=== PATIENT | female | born 1950 | race Caucasian/White ===

== ENCOUNTER → 2017-11-04 | Outpatient (CLI) | payer BC ==
--- NOTE | 2017-11-04 15:46 | KCIC ---
MRI Lumbar Spine without contrast History: Lumbar back pain with radiculopathy, pain in the left leg, left lower extremity numbness Technique: Multiplanar, multi sequential noncontrast MR imaging was performed of the lumbar spine. Contrast: None Comparison: None Findings: There is some motion degradation. There is transitional anatomy of the lumbar spine. For the purpose of this report, the most inferior fully formed intervertebral disc space is considered L5-S1 at which there is grade 1 anterior spondylolisthesis, rudimentary incomplete intervertebral disc space at S1-S2. There is very minimal posterior subluxation of L2 relative to L3. There is multilevel fairly advanced degenerative disc disease throughout the lumbar spine. Conus terminates at L2-3. There is mild variable endplate edema throughout the lumbar spine likely reactive/degenerative in etiology. There is mild lumbar levoscoliosis. T12-L1: There is shallow posterior protrusion. Spinal canal is adequate. L1-L2: There is minimal broad posterior disc osteophyte complex and minimal bulge. Spinal canal and neural foramina are adequate. L2-L3: There is broad posterior disc osteophyte complex. There is mild narrowing of the far left lateral recess. There is mild buckling of the ligamentum flavum. There is mild neural foramina compromise bilaterally. L3-L4: There is broad posterior disc osteophyte complex. There is mild facet degenerative change and buckling of the ligamentum flavum. Spinal canal is overall adequate. There is mild narrowing of the right neural foramen, left neural foramen adequate. L4-L5: There is minimal disc osteophyte complex. There is mild facet degenerative change. Spinal canal is adequate. There is mild neural foramina compromise bilaterally, disc osteophyte complex contacting undersurface exiting right L4 nerve root. L5-S1: There is moderate facet degenerative change greater on the left. There is mild buckling of the ligamentum flavum. There is partial uncovering of the posterior aspect of the disc due to spondylolisthesis, minimal superimposed disc osteophyte complex. Spinal canal is overall adequate. There is moderate left and minimal right neural foramina compromise. Impression: 1. There is transitional anatomy of the lumbar spine, grade 1 anterior spondylolisthesis at what is considered L5-S1. There is multilevel advanced degenerative disc disease variably throughout lumbar spine, multilevel spondylosis. There is no significant lumbar spinal stenosis, mild narrowing of the far left lateral recess L2-3. 2. There is moderate narrowing of the left L5-S1 neural foramen, other mild narrowing as stated. Electronically signed by: Keyur Lobo MD (11/04/2017 3:43 PM) [facility] [place]
== END | disposition home or self-care (01) ==
LOC: KCIC MRI 14:39
PROVIDERS: ATTEND Family Medicine
DX: M51.36 Other intervertebral disc degeneration, lumbar region (principal); M43.16 Spondylolisthesis, lumbar region; M48.07 Spinal stenosis, lumbosacral region; M25.78 Osteophyte, vertebrae
CPT/HCPCS: 72148

== ENCOUNTER → 2018-11-16 | Outpatient (CLI) | payer BC, MEDICARE ==
[~2018-11-16] MED LIST: ALPR0.25 PO; CALC500T30 PO; CYCL5TAB PO; HYDR-3164 PO; HYDR200T71 PO; IOHEXOL 180 MG/ML 10 ML VIAL. ONE; LISI1TAB23 PO; MELO15TA23 PO; MULT1TAB52 PO; OMEG-57 PO; PRAM0.255 PO; methylPREDNISolone ACETATE 40 MG/ML VIAL. ONE; methylPREDNISolone ACETATE 80 MG/ML VIAL. ONE
--- NOTE | 2018-11-17 02:36 | PAIN ---
DATE OF SERVICE: 11/16/2018 INITIAL CONSULTATION FOR PAIN CLINIC CHIEF COMPLAINT: Low back and left greater than right lower extremity pain. 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 The patient reports it is worse across the low back radiating to the lower extremities, mostly in the left side in the posterior gluteus, posterior thigh and posterior calf on the left side more than the right, some on the right, but mostly on the left side. The patient reports it is worse with standing, walking, changing positions, awakens her from sleep occasionally, but not every night. The patient reports it does not affect her bowel or bladder control, but does affect her ability to walk. She is not using any assistive devices, however. The patient has tried therapy in the past, also chiropractic treatment and exercise she is currently doing on her own as well as walking, which all helped to some extent. She also tried [place], meloxicam, Tylenol, Flexeril, Mirapex, all of which helped to a moderate extent also. The patient reports her disability rating from 0-10, 10 being the worst, is a 5 with family and home responsibilities and recreation, 6 with occupation, 2 with social activity, 2 with sexual behavior, 1 with self-care and 3 with life support activities. The patient did have an MRI scan of the lumbar spine showing disk osteophyte complexes at L2-L3, L3-L4 and L4-L5 as well as L5-S1 with L4-L5 showing some contact of the undersurface of exiting right L4 nerve root and L5 shows degenerative changes, greater on the left with superimposed disk osteophyte complex, moderate left and minimal right neural foraminal compromise. The patient describes significant fatigability of the left lower extremity when she has been on her feet, usually at work or standing, leaning forward. She can decrease the pain by propping herself up with her arms on the countertop in getting the weight off of her low back, which seems to help but she does this frequently while she is working. PAST MEDICAL HISTORY: Significant for history of hypertension, UTIs, dizziness, loss of balance, arthritis, osteoporosis, osteopenia and skin limited lupus. PREVIOUS SURGERIES: Include right leg surgery, pins and hardware from an injury, hysterectomy and shoulder repair in 2006. CURRENT MEDICATIONS: Include calcium carbonate, fish oil, multivitamins, lisinopril, meloxicam, hydrocodone, Plaquenil, Xanax, Mirapex and cyclobenzaprine. ALLERGIES: The patient has no known drug allergies. FAMILY HISTORY: Significant for heart disease in the patient's father. SOCIAL HISTORY: The patient drinks 1-2 alcoholic drinks 3-4 times a week, does not smoke. Denies any illegal, illicit or recreational drugs. She is , lives with her spouse, lives locally in [place], [place], works as a registered nurse at the [employer]. REVIEW OF SYSTEMS: The patient's review of systems is positive for those items as mentioned in history of present illness. All systems reviewed are otherwise negative. It is complete, full and well documented on the patient's chart. PHYSICAL EXAMINATION: VITAL SIGNS: The patient's blood pressure is 136/85, pulse 90, respirations 18, temperature 98.3 degrees Fahrenheit, height is 4 feet 11 inches, weight is 178 pounds. GENERAL: She is awake, alert, oriented, appropriate, very pleasant demeanor. HEENT: Shows head is normocephalic, atraumatic. Extraocular movements are intact and symmetrical. Oral cavity: Mucous membranes moist and pink. Dentition is intact. NECK: Shows anterior throat supple without palpable lymphadenopathy noted. Swallow reflex symmetrical. CHEST: Shows normal on inspection. Breath sounds are clear bilaterally. HEART: Shows S1, S2 clear. No murmurs auscultated. ABDOMEN: Soft, nontender, nondistended. No palpable organomegaly is noted. No rebound or guarding demonstrated. BACK: Shows spine grossly in the midline. Normal-appearing thoracic kyphosis and minor flattening of lumbar lordotic curvature and normal cervical lordotic curvature. Lumbar paraspinous muscle shows symmetrical on inspection. Palpation shows some moderate tenderness diffusely bilaterally, but only diffusely without significant radiation. The patient has good rotational motion of lumbar spine, both laterally greater than 10 degrees right and left as well as extension greater than 10 degrees, forward flexion 45 degrees without significant increase in pain. EXTREMITIES: The patient's lower extremities show deep tendon reflexes at 2+ in the patellar and 1+ tendo-calcaneus tendons. Motor exam is approximately 4 on a scale of 5 in the left and 5/5 in the right with dorsiflexion, extension, quadriceps and hamstring flexion, but intact. Peripheral pulses are 1+ posterior tibial. No peripheral edema is noted bilaterally. The patient's straight leg raise noted to be positive on the left at about 40 degrees. Right side is negative. Gaenslen's and Can's maneuvers are negative bilaterally. The patient is able to stand, stand on her toes without significant difficulty or loss of balance, not using any assistive devices, has a slight favoring gait, does appear to favor her left lower extremity mildly when ambulating. SKIN: Shows warm and dry, good turgor. No edema. No sores, rashes or bruising. IMPRESSION: This is a 68-year-old female with: 1. Long history of low back and left greater than right lower extremity pain, worse over the past 6 months or so. 2. MRI scan of lumbar spine as noted. 3. Arthritis. 4. Hypertension. PLAN: Options were discussed with the patient including conservative medical management, physical therapy, interventional techniques and she would like to pursue interventional techniques. We discussed the lumbar epidural steroid injections using description as well as anatomical models to describe the procedure. Risks were then discussed including, but not limited to bleeding, infection, possibility of epidural hematoma, subsequent neurological compromise, dural puncture, headaches, spinal cord and/or nerve damage, side effects of steroid medication and poor results regarding pain control. The patient understands and wished to proceed. The patient will return to clinic in approximately 2 weeks for followup. She was counseled on return appointment, activity level and side effects to be aware of. DIAGNOSIS: Lumbar radiculopathy with lumbar degenerative disk disease. PROCEDURE: Lumbar epidural steroid injection, translaminar approach at L5-S1 level using C-arm fluoroscopic guidance under sterile prep and drape using local anesthetic. MEDICATIONS INJECTED: A total of 120 mg Depo-Medrol plus 10 mL of preservative-free normal saline and 2 mL of contrast. CONDITION AT DISCHARGE: Stable. The patient tolerated the procedure well, had no complications. YUSUF LOMBARDO MD DR: KAYLIN/stanislaw JOB#: [id number] / [id number] JAMIL Paz MD
== END ==
LOC: PNCL 09:22
PROVIDERS: ATTEND Anesthesiology
DX: M51.16 Intervertebral disc disorders with radiculopathy, lumbar region (principal); I10 Essential (primary) hypertension; Z87.39 Personal history of other diseases of the musculoskeletal system and connective tissue; Z87.440 Personal history of urinary (tract) infections; Z90.710 Acquired absence of both cervix and uterus; Z98.890 Other specified postprocedural states; Z72.89 Other problems related to lifestyle
CPT/HCPCS: 62323; J1030; J1040; Q9965

== ENCOUNTER → 2018-11-29 | Outpatient (CLI) | payer BC, MEDICARE ==
[~2018-11-29] MED LIST changes: +BUPR150T8 PO; -IOHEXOL 180 MG/ML 10 ML VIAL. ONE; -methylPREDNISolone ACETATE 40 MG/ML VIAL. ONE; -methylPREDNISolone ACETATE 80 MG/ML VIAL. ONE
--- NOTE | 2018-11-30 04:17 | PN ---
DATE: 11/29/2018 PROGRESS NOTE FOR PAIN CLINIC DIAGNOSIS: Lumbar radiculopathy with lumbar degenerative disk disease. HISTORY OF PRESENT ILLNESS: The patient is a 68-year-old female who returns for followup status post lumbar epidural steroid injection x 1. The patient reports she did very well with about 90+ % decrease in pain in her low back and left lower extremity. The patient reports the pain is now in very minimal amount, maybe 4 on a scale of 10 at its absolute worst in the past week, 1-2 on average, 0 at its least, and is 0 today. The patient reports it is aching and dull in the low back, more on the left side only with activity and working. The patient has been increasing her activity doing distance walking activity with work and home activities, getting out of bed much easier. The patient reports she is quite pleased with her progress, reports no new motor or sensory deficits, no new bowel or bladder incontinence. PHYSICAL EXAMINATION: VITAL SIGNS: The patient's blood pressure is 132/84, pulse 77, respirations 16, temperature is 98.1 degrees Fahrenheit. The patient's weight is 174 pounds. GENERAL: The patient is awake, alert, oriented, appropriate, very pleasant demeanor. HEENT: Normocephalic, atraumatic. Extraocular movements are intact and symmetrical. Oral cavity, mucous membranes are moist and pink. Dentition is intact. NECK: Shows anterior throat supple without palpable lymphadenopathy noted. Swallow reflex symmetrical. CHEST: Shows normal on inspection. Breath sounds clear to auscultation bilaterally. HEART: Shows S1, S2 clear. No murmurs auscultated. ABDOMEN: Soft, nontender, nondistended. No palpable organomegaly is noted. No rebound or guarding demonstrated. BACK: Shows spine grossly in the midline. Normal appearing thoracic kyphosis and lumbar lordotic curvature. Lumbar paraspinous muscle shows symmetrical on inspection. On palpation shows some moderate tenderness diffusely bilaterally, but only diffusely without radiation. EXTREMITIES: The patient's lower extremities show deep tendon reflexes 2+ in the patellar, 1+ tendo-calcaneus tendons. Motor exam is approximately 4 on a scale of 5 on the left and 5/5 on the right, but intact. Peripheral pulses are 1+ posterior tibia. No peripheral edema is noted. Options were discussed with the patient. The patient's old chart was reviewed. Her current medication regimen updated. Current review of systems updated today as well. We will hold on any further injections at this time as the patient is doing quite a bit better and would like to hold on any further interventions. She will continue to increase in activity as tolerated. Also, continue the stretching and strengthening exercises of low back and will follow up at this time on as needed basis. YUSUF LOMBARDO MD DR: KAYLIN/stanislaw JOB#: [id number] / [id number]
== END | disposition home or self-care (01) ==
LOC: PNCL 10:08
PROVIDERS: ATTEND Anesthesiology
DX: M51.16 Intervertebral disc disorders with radiculopathy, lumbar region (principal); M40.294 Other kyphosis, thoracic region; M40.46 Postural lordosis, lumbar region
CPT/HCPCS: G0463

== ENCOUNTER → 2018-12-27 | Outpatient (CLI) | payer BC, MEDICARE ==
[~2018-12-27] MED LIST changes: +IOHEXOL 180 MG/ML 10 ML VIAL. ONE; +methylPREDNISolone ACETATE 40 MG/ML VIAL. ONE; +methylPREDNISolone ACETATE 80 MG/ML VIAL. ONE
--- NOTE | 2018-12-27 19:45 | PAIN ---
DATE OF SERVICE: 12/27/2018 PROGRESS NOTE FOR PAIN CLINIC DIAGNOSIS: Lumbar radiculopathy with lumbar degenerative disk disease. HISTORY OF PRESENT ILLNESS: The patient is a 68-year-old female returns for followup status post lumbar epidural steroid injection x 1. The patient reports about 80% improvement for the first few weeks. The pain is returning now but gradually in the low back and left lower extremity, mostly in the posterior gluteus, posterior thigh, some numbness in this area as well, mostly aching and pain. The patient describes it as tight and shooting across the low back and radiating to the left lower extremity, sometimes severe with walking, standing, changing positions. The patient reports she is sleeping very well at night, occasionally has some cramps in her right leg, but only twice recently. The patient reports otherwise sleeps well, usually does not awaken her from sleep. The patient reports no new motor or sensory deficits, no new bowel or bladder incontinence or other complaints. The patient describes the pain as a 7 on a scale of 10 at its worst over the past week, 4 on average, 1 at its least and is a 4 today. PHYSICAL EXAMINATION: VITAL SIGNS: The patient's blood pressure is 131/67, pulse 83, respirations are 18, temperature 98.0 degrees Fahrenheit, height is 4 feet 10 inches, weighs 178 pounds. GENERAL: The patient is awake, alert, oriented, appropriate, very pleasant demeanor. HEENT: Head is normocephalic, atraumatic. Extraocular movements are intact and symmetrical. Oral cavity: Mucous membranes moist and pink. Dentition is intact. NECK: Shows anterior throat supple without palpable lymphadenopathy noted. Swallow reflex symmetrical. CHEST: Shows normal on inspection. Breath sounds clear to auscultation bilaterally. HEART: Shows S1, S2 clear. No murmurs auscultated. ABDOMEN: Soft, nontender, nondistended. BACK: Shows spine grossly in the midline. Lumbar paraspinous muscle shows symmetrical on inspection, with palpation shows some moderate tenderness diffusely bilaterally, but only diffusely without radiation. EXTREMITIES: The patient's lower extremities show deep tendon reflexes 2+ in the patellar, 1+ tendo-calcaneus tendons. Motor exam is 4/5, left and 5/5 on the right with dorsiflexion, extension, quadriceps and hamstring flexion. Peripheral pulses are 1+ posterior tibia. No peripheral edema is noted. Options were discussed with the patient. The patient's old chart was reviewed as her current medication regimen updated. Current review of systems updated as well. We will proceed with a second in a series of lumbar epidural steroid injection today with fluoroscopic guidance. Risks were again discussed including, but not limited to bleeding, infection, possibility of epidural hematoma, subsequent neurologic compromise, dural puncture, headaches, spinal cord and/or nerve damage, side effects of steroid medication and poor results regarding pain control. The patient understands and wished to proceed. The patient will return to clinic in approximately 2 weeks for followup. She was counseled on return appointment, activity level and side effects to be aware of. DIAGNOSES: Lumbar radiculopathy with lumbar degenerative disk disease. PROCEDURE: Lumbar epidural steroid injection, translaminar approach L5-S1 level using C-arm fluoroscopic guidance under sterile prep and drape using local anesthetic. MEDICATION INJECTED: The patient received a total of 120 mg Depo-Medrol plus 10 mL of preservative-free normal saline and 2 mL of contrast. CONDITION AT DISCHARGE: Stable. The patient tolerated the procedure well, had no complications. YUSUF LOMBARDO MD DR: KAYLIN/stanislaw JOB#: [id number] / [id number]
== END ==
LOC: PNCL 14:17
PROVIDERS: ATTEND Anesthesiology
DX: M51.16 Intervertebral disc disorders with radiculopathy, lumbar region (principal)
CPT/HCPCS: 62323; J1030; J1040; Q9965

== ENCOUNTER → 2019-12-12 | Outpatient (CLI) | payer MEDICARE ==
[~2019-12-12] MED LIST changes: +CETI10TA74 PO; +CRAN300T PO; +CYCL10TA2 PO; +FAMO-63 PO; +GABA600T7 PO; +HYDR-2765 PO; -IOHEXOL 180 MG/ML 10 ML VIAL. ONE; +MULT-445 PO; -MULT1TAB52 PO; -methylPREDNISolone ACETATE 40 MG/ML VIAL. ONE; -methylPREDNISolone ACETATE 80 MG/ML VIAL. ONE
[2019-12-12 09:27] LABS: BASO # 0.1 x10^3/uL (0.0-0.2); BASO % 2 % (0-3); EOS # 0.3 x10^3/uL (0.0-0.7); EOS % 6 % (0-3); HEMATOCRIT 43.1 % (36.0-47.0); HEMOGLOBIN 14.8 g/dL (12.0-15.5); LYMPH # 1.6 x10^3/uL (1.0-4.8); LYMPH % 31 % (24-48); MEAN CORPUSCULAR HEMOGLOBIN 32 pg (25-35); MEAN CORPUSCULAR HGB CONC 34 g/dL (31-37); MEAN CORPUSCULAR VOLUME 94 fL (79-100); MONO # 0.5 x10^3/uL (0.0-1.1); MONO % 11 % (0-9); NEUT # 2.6 x10^3/uL (1.8-7.7); NEUT % 50 % (31-73); PLATELET COUNT 269 x10^3/uL (140-400); RED BLOOD COUNT 4.58 x10^6/uL (3.50-5.40); RED CELL DISTRIBUTION WIDTH 14.1 % (11.5-14.5); WHITE BLOOD COUNT 5.1 x10^3/uL (4.0-11.0)
[2019-12-12 09:43] LABS: PROTHROMBIN TIME PATIENT 12.7 SEC (11.7-14.0)
[2019-12-12 09:44] LABS: ALBUMIN 3.6 g/dL (3.4-5.0); C-REACTIVE PROTEIN 2.3 mg/L (0-3.3); CALCIUM 9.8 mg/dL (8.5-10.1); CREATININE 0.9 mg/dL (0.6-1.0); GFR 61.9; POTASSIUM 3.8 mmol/L (3.5-5.1)
--- NOTE | 2019-12-12 13:21 | EKG ---
[facility] [address] [place] [address] Test Date: 2019-12-12 Test Time: 12:47:47 Pat Name: ARACELI BADILLO Department: Room: Gender: F Counter Tacker: MR RODB: 1950 Requested By: CLAIRE MILTON Order Number: [id number] Reading MD: Venkat Aguilera MD Measurements Intervals [place] Rate: 75 P: 35 WI: 236 QRS: -16 QRSD: 94 T: 26 QT: 382 QTc: 429 Interpretive Statements SINUS RHYTHM PROLONGED WI INTERVAL CONSIDER PRIOR INFERIOR INFARCT Electronically Signed On 12-13-2019 8:36:37 CDT by Venkat Aguilera MD
--- NOTE | 2019-12-12 16:00 | RAD ---
EXAM: Chest, 2 views. HISTORY: Preoperative evaluation. COMPARISON: None. FINDINGS: 2 views of the chest are obtained. There is no infiltrate, pleural effusion or pneumothorax. The heart is normal in size. There is internal fixation of a left humeral fracture, partially included on the [id number]. There is a chronic proximal right humeral fracture. There is incidental calcification within the right subacromial space possibly due to calcific tendinitis. IMPRESSION: No acute pulmonary finding. Electronically signed by: Flora Mayes MD (12/12/2019 3:57 PM) [id number]
[2019-12-13 01:08] LABS: HEMOGLOBIN A1C 5.1 % (4.8-5.6)
== END | disposition home or self-care (01) ==
LOC: SURGPAT 12:52
PROVIDERS: ATTEND Orthopaedic Surgery
DX: Z01.812 Encounter for preprocedural laboratory examination (principal); M84.421A Pathological fracture, right humerus, initial encounter for fracture; M65.811 Other synovitis and tenosynovitis, right shoulder; Z96.652 Presence of left artificial knee joint; X58.XXXA Exposure to other specified factors, initial encounter; Y93.89 Activity, other specified; Y92.89 Other specified places as the place of occurrence of the external cause; Y99.8 Other external cause status
CPT/HCPCS: 36415; 71046; 80048; 82040; 82306; 83036; 85025; 85610; 85730; 86140; 87641; 93005

== ENCOUNTER → 2019-12-22 | Outpatient (CLI) | payer MEDICARE | LOC: LAB 14:15 | PROVIDERS: ATTEND Orthopaedic Surgery | DX: Z01.812 Encounter for preprocedural laboratory examination (principal); M19.90 Unspecified osteoarthritis, unspecified site; Z20.828 Contact with and (suspected) exposure to other viral communicable diseases | CPT/HCPCS: U0003-CS ==

== ENCOUNTER → 2020-03-21 | Outpatient (CLI) | payer MEDICARE ==
[2019-12-28 13:19] VITALS: BP 114/57
[~2020-03-21] MED LIST changes: +TRAM50TA PO
[2020-03-21 09:58] LABS: BASO # 0.1 x10^3/uL (0.0-0.2); BASO % 1 % (0-3); EOS # 0.2 x10^3/uL (0.0-0.7); EOS % 5 % (0-3); HEMATOCRIT 41.3 % (36.0-47.0); LYMPH # 1.4 x10^3/uL (1.0-4.8); LYMPH % 26 % (24-48); MEAN CORPUSCULAR HEMOGLOBIN 32 pg (25-35); MEAN CORPUSCULAR HGB CONC 34 g/dL (31-37); MEAN CORPUSCULAR VOLUME 93 fL (79-100); MONO # 0.6 x10^3/uL (0.0-1.1); MONO % 12 % (0-9); NEUT # 2.9 x10^3/uL (1.8-7.7); NEUT % 56 % (31-73); PLATELET COUNT 245 x10^3/uL (140-400); RED BLOOD COUNT 4.42 x10^6/uL (3.50-5.40); RED CELL DISTRIBUTION WIDTH 13.4 % (11.5-14.5); WHITE BLOOD COUNT 5.2 x10^3/uL (4.0-11.0)
[2020-03-21 10:11] LABS: PROTHROMBIN TIME PATIENT 12.8 SEC (11.7-14.0)
[2020-03-21 10:14] LABS: ALBUMIN 3.4 g/dL (3.4-5.0); ANION GAP 10 (6-14); BLOOD UREA NITROGEN 28 mg/dL (7-20); CALCIUM 9.5 mg/dL (8.5-10.1); CARBON DIOXIDE 24 mmol/L (21-32); CHLORIDE 101 mmol/L (98-107); CREATININE 0.8 mg/dL (0.6-1.0); GFR 70.9; GLUCOSE 101 mg/dL (70-99); POTASSIUM 4.3 mmol/L (3.5-5.1); SODIUM 135 mmol/L (136-145)
[2020-03-21 10:15] LABS: C-REACTIVE PROTEIN < 0.5 mg/L (0-3.3)
[2020-03-22 00:08] LABS: HEMOGLOBIN A1C 5.1 % (4.8-5.6)
== END ==
LOC: SURGPAT 09:27
PROVIDERS: ATTEND Orthopaedic Surgery
DX: Z01.812 Encounter for preprocedural laboratory examination (principal); S82.142A Displaced bicondylar fracture of left tibia, initial encounter for closed fracture; Z20.828 Contact with and (suspected) exposure to other viral communicable diseases; X58.XXXA Exposure to other specified factors, initial encounter; Y93.89 Activity, other specified; Y92.89 Other specified places as the place of occurrence of the external cause; Y99.8 Other external cause status
CPT/HCPCS: 80048; 82040; 82306; 83036; 85025; 85610; 85730; 86140; 87641; U0003

== ENCOUNTER 2020-03-27 10:40 | Inpatient (IN) | payer MEDICARE ==
[~2020-03-27] VITALS: Ht 146.1 cm; Wt 76.7 kg
[2020-03-27] VITALS (7 sets, daily range): BP systolic 96–118; BP diastolic 60–75
[~2020-03-27 10:40] MED LIST changes: +ACETAMINOPHEN 500 MG TABLET PO ONE; +DEXAMETHASONE SOD PHOS 4 MG/ML VIAL ONE; +GABAPENTIN 300 MG CAPSULE. PO ONE; +IV RINGERS,LACTATED 1000ML 1,000 ML IV SCH; +LIDOCAINE 1% PF 2 ML VIAL. ID PRN; +LIDOCAINE 2% PF 5 ML VIAL. ONE; +MELOXICAM 7.5 MG TABLET PO ONE; +MORPHINE SULFATE 5 MG, KETOROLAC 30MG VIAL 30 MG, ROPIVacaine 0.5% PF 60 ML, EPINEPHrin... INT ART ONE; +ONDANSETRON PF 4 MG/2 ML VIAL. IV PRN; +ONDANSETRON PF 4 MG/2 ML VIAL. ONE; +PROPOFOL 10 MG/ML (20ML) VIAL. IV ONE; +TRANEXAMIC ACID 1,000 MG in IV NORMAL SALINE 50ML 50 ML INJ ONE; +ceFAZolin SODIUM IV Push 1 GM VIAL. IVP PRN; +fentaNYL PF VIAL 100 MCG/2 ML VIAL IV PRN; +fentaNYL PF VIAL 100 MCG/2 ML VIAL ONE
[2020-03-27 11:43] LABS: PROTHROMBIN TIME PATIENT 13.1 SEC (11.7-14.0)
[2020-03-27] MEDS ORDERED: VANCOMYCIN 1 GM VIAL. ONE (14:27)
[2020-03-27] MEDS ORDERED: fentaNYL PF VIAL 100 MCG/2 ML VIAL ONE ×2 (14:38→16:04)
[2020-03-27] MEDS ORDERED: HYDROmorphone 2 MG/ML VIAL ONE ×2 (15:03→16:21)
[2020-03-27] MEDS ORDERED: SEVOFLURANE > 120 MINUTES. IH ONE (15:23)
[2020-03-27] MEDS: fentaNYL PF VIAL 100 MCG/2 ML VIAL IV PRN ×2 (16:12→16:29)
[2020-03-27] MEDS ORDERED: MORPHINE SULFATE 2 MG/ML VIAL. ONE (16:21)
[2020-03-27] MEDS ORDERED: PROCHLORPERAZINE 10 MG/2 ML VIAL. ONE (16:22)
[2020-03-27] MEDS: PROCHLORPERAZINE 10 MG/2 ML VIAL. IV PRN ×2 (16:29→16:47)
[2020-03-27] MEDS: MORPHINE SULFATE 2 MG/ML VIAL. IV PRN ×2 (16:34→16:48)
[2020-03-27] MEDS: HYDROmorphone 2 MG/ML VIAL IV PRN ×3 (16:59→17:22)
[2020-03-27] MEDS ORDERED: HYDROmorphone 2 MG/ML VIAL IVP PRN (17:45)
[2020-03-27] MEDS ORDERED: PROCHLORPERAZINE 5 MG TABLET. PO PRN (17:45)
[2020-03-27] MEDS ORDERED: 0.9 % SODIUM CHLORIDE 10 ML DISP.SYRIN. IV PRN (17:45)
[2020-03-27] MEDS ORDERED: CALCIUM CARBONATE 500 MG TAB.CHEW PO PRN (17:45)
[2020-03-27] MEDS ORDERED: ZOLPIDEM 5 MG TABLET. PO PRN (17:45)
[2020-03-27] MEDS ORDERED: DEXTROSE 50% 25 GM / 50ML DISP.SYRIN. IV PRN (17:45)
[2020-03-27] MEDS ORDERED: diphenhydrAMINE 50 MG/ML VIAL IVP PRN (17:45)
[2020-03-27] MEDS ORDERED: fentaNYL PF VIAL 100 MCG/2 ML VIAL IVP PRN (17:45)
--- NOTE | 2020-03-27 17:55 | RAD ---
EXAMINATION: XR KNEE_LT 1-2 VIEWS CLINICAL HISTORY: Status post arthroplasty TECHNIQUE: XR KNEE_LT 1-2 VIEWS Number of Images/Views: 2 COMPARISON: Left knee radiographs 03/19/2020 FINDINGS: Interval left total knee arthroplasty in satisfactory alignment with no evidence of acute hardware co mplication. Expected postsurgical changes in the sternum and soft tissues including mild soft tissue and intra-articular emphysema. IMPRESSION: Normal postoperative findings status post interval left total knee arthroplasty. Electronically signed by: Morgan Higuera DO (03/27/2020 5:53 PM) [id number]
[2020-03-27] MEDS ORDERED: FLU VACC QS 2020-21(6MOS+)/PF 0.5 ML SYRINGE. VAX IM ONE (18:45)
[2020-03-27] MEDS: ceFAZolin SODIUM IV Push 1 GM VIAL. IVP SCH (19:36)
[2020-03-27] MEDS: IV NORMAL SALINE 1000ML BAG 1,000 ML IV SCH (19:36)
--- NOTE | 2020-03-27 20:01 | PDOC4 ---
Operative Note Operative Note Date of surgery: 03/27/2020 Preoperative diagnosis: Left knee degenerative joint disease and left lateral tibial plateau fracture with left knee valgus instability Postoperative diagnosis: Same with markedly depressed lateral tibial plateau fracture with confirmed instability Operative procedure: Left total knee arthroplasty Surgeon: Yossi Assistants: Mukesh quiles Anesthesia: General Estimated blood loss: 25 cc Complications: None Specimens: Cartilage surfaces to pathology Drains: None Operative indications: Please see my dictated preoperative history and physical and clinic notes for detailed operative indications Operative text: Patient was identified procedure verified patient placed in the supine position on the operating table. After adequate amounts of general anesthesia were administered the left lower extremity was prepped and draped in standard sterile fashion with a thigh tourniquet. After timeout was performed patient procedure identified and verified the left lower extremity was exsanguinated by Esmarch bandage tourniquet inflated to 300 mmHg. A midline incision was made with a mid vastus extending to a medial parapatellar approach. Patella was everted fat pad was excised distal femur was drilled and the distal femur was cut in the standard position. Proximal tibia cut was made with the extra-articular cutting jig adjusted to achieve alignment with the second toe and excise adequate bone laterally as she had a severe valgus deformity initially due to a depressed lateral tibial plateau fracture. There was a slight remaining depressed area laterally in the tibia and based on the tibial alignment guide and failure to achieve full extension an additional 2 mm was excised removing nearly the entire depressed area laterally in the tibia and the knee then achieved full extension with excellent alignment based on the alignment shawna. Distal femur was sized at a size 7 AP and chamfer cuts were made and flexion extension balancing carried out. A size D tibial component was placed along with a size 7 femur persona narrow component with a medial congruent 11 mm trial component. Excellent ligament balance and stability were noted both in flexion and extension. Tibia was drilled and broached and femoral lugs were drilled. Trial components were removed through irrigation carried out with normal saline solution. The following components were then cemented in place with polymethylmethacrylate cement: A size D persona tibial component. A size 7 narrow persona femoral component. Excess cement was removed and a vitamin E medial congruent spacer 11 mm height was locked in place. Dilute Betadine lavage was then used and followed up with normal saline solution and pulse lavage. Intra-articular mixture was injected periosteally and throughout the joint capsule. Hemovac drain and intra-articular catheter were then placed. 1 g vancomycin was placed in the knee joint and closure of the medial approach was carried out with running #1 PDS strata fix suture. Subcutaneous closure with buried Vicryl suture subcuticular closure with 3-0 strata fix Monocryl. P ico dressing was placed patient was returned to recovery room in stable condition having tolerated procedure well toes were noted to be warm pink following deflation of the tourniquet. Mukesh quiles was present for the procedure and assisted in the patient positioning prepping draping retraction closure and dressings. CLAIRE MILTON MD Mar 27, 2020 20:01
[2020-03-27] MEDS: PRAMIPEXOLE 0.25 MG TABLET. PO SCH (22:30)
[2020-03-27] MEDS: ALPRAZolam 0.25 MG TABLET PO PRN (22:30)
[2020-03-27] MEDS: HYDROXYCHLOROQUINE 200 MG TABLET PO SCH (22:52)
[2020-03-28 03:00] VITALS: BP 99/64
[2020-03-28] MEDS: ceFAZolin SODIUM IV Push 1 GM VIAL. IVP SCH ×2 (03:11→08:39)
[2020-03-28] MEDS: IV NORMAL SALINE 1000ML BAG 1,000 ML IV SCH (05:48)
[2020-03-28] MEDS: ONDANSETRON PF 4 MG/2 ML VIAL. IVP SCH ×3 (05:49→11:57)
[2020-03-28] MEDS: ONDANSETRON ODT 4 MG TAB.RAPDIS. PO SCH ×3 (05:49→15:20)
[2020-03-28] MEDS ORDERED: MAGNESIUM HYDROXIDE 2,400 MG/30 ML ORAL.SUSP. PO PRN (06:00)
--- NOTE | 2020-03-28 06:01 | NUR ---
Sleeping well. Earlier patient was anxious and restless. "I'm so sleepy but I wake up because I forget to breathe. " Requests spo2 be monitored throughout the noc. No apnea seen, O2 on 2l/nc. sat 93%. Has ambulated to toilet w/ SBA w/o difficulty. C/o blurred vision earlier but states "it's better now."
[2020-03-28 06:42] VITALS: BP 84/54
--- NOTE | 2020-03-28 06:43 | NUR ---
BP 84/54. IVF resumed. "My BP was low the last time I had surgery."
[2020-03-28] MEDS: LISINOPRIL 10 MG TABLET PO SCH (07:16)
[2020-03-28] MEDS: hydroCHLOROthiazide 12.5 MG CAPSULE PO SCH (07:16)
[2020-03-28 07:52] LABS: PROTHROMBIN TIME PATIENT 14.7 SEC (11.7-14.0)
[2020-03-28] MEDS ORDERED: FERROUS SULFATE 325 MG TABLET. PO SCH (08:00)
[2020-03-28] MEDS: SENNOSIDES/DOCUSATE 8.6/50MG TABLET. PO SCH (08:38)
[2020-03-28] MEDS: ACETAMINOPHEN 500 MG TABLET PO SCH ×3 (08:38→21:21)
[2020-03-28] MEDS: MULTIVITAMIN with MINERAL TABLET. PO SCH (08:38)
[2020-03-28] MEDS: buPROPion SR 150 MG TABLET.SA PO SCH (08:38)
[2020-03-28] MEDS: HYDROXYCHLOROQUINE 200 MG TABLET PO SCH ×2 (08:38→21:21)
[2020-03-28 08:39] VITALS: BP 94/61
[2020-03-28] MEDS ORDERED: NON FORMULARY ITEM (Lisinopril/Hydrochlorothiazide (Lisinopril-Hctz 10-12.5 Mg Tab) 1 TAB) PO SCH (09:00)
[2020-03-28] MEDS: ALPRAZolam 0.25 MG TABLET PO PRN ×2 (09:16→21:21)
[2020-03-28 10:10] VITALS: BP 100/65
--- NOTE | 2020-03-28 10:18 | NUR ---
Pharmacy Warfarin Dosing Note S:Pharmacy consulted to assist with anticoagulation therapy started with target INR: 1.6 - 2.5 O:ARACELI BADILLO is a 69 year old F with TKA LABS: Last INR: 1.2 Last HGB: -- Last HCT: -- Last PLT: -- A:INR of 1.2 is below desired range. Target range for this patient is: 1.6 - 2.5 P: Warfarin dose: 5 mg Today at 1600 Bridge Therapy: None Next INR due 03/29/20 Pharmacy anticoagulation service will continue to follow. BARBIE DUMONT RPH, 03/28/20 [id number]
--- NOTE | 2020-03-28 11:08 | NUR ---
spoke with pharmacy regarding the coumadin dosage and the missed dose last night. verified the coumadin dose of 5 mg this evening.
[2020-03-28] MEDS ORDERED: ONDANSETRON ODT 4 MG TAB.RAPDIS. PO PRN (12:00)
[2020-03-28] MEDS ORDERED: ONDANSETRON PF 4 MG/2 ML VIAL. IVP PRN (12:00)
--- NOTE | 2020-03-28 15:10 | NUR ---
Nikki attended both rehab sessions and tolerated fair. original surgical dressing removed ; cleansed with chlor prep then Aquacel Ag applied. she is rating her pain 4 refused pain medication--"i dont want my blood pressure to go down" blood pressure is better; Ns dc's and saline lock. returns to bed "Did not sleep last night." she is unable to decide whether to take medication refused oxycodone or Xanax . did take Tylenol
[2020-03-28 15:22] VITALS: BP 121/76
[2020-03-28] MEDS ORDERED: BISACODYL 10 MG SUPP.RECT. PR PRN (16:00)
[2020-03-28] MEDS ORDERED: WARFARIN 5 MG TABLET. PO ONE (16:00)
[2020-03-28] MEDS ORDERED: WARFARIN 7.5 MG TABLET. PO ONE (16:00)
--- NOTE | 2020-03-28 16:55 | NUR ---
nupur refused iron--"causes loose stools" .
[2020-03-28 19:20] VITALS: BP 106/68
[2020-03-28] MEDS: PRAMIPEXOLE 0.25 MG TABLET. PO SCH (21:42)
[2020-03-28] MEDS: oxyCODONE IR 5 MG TABLET PO PRN (21:42)
--- NOTE | 2020-03-28 22:07 | PDOC ---
PROGRESS NOTES Date of Service DATE: 03/28/20 TIME: 22:05 Subjective Subjective Problems overnight: Pain is well controlled this morning no other complaints Objective Vital Signs Vital Signs Date Time Temp Pulse Resp B/P (MAP) Pulse Ox O2 Delivery O2 Flow Rate FiO2 03/28/20 21:42 95 Room Air 94.0 03/28/20 19:20 98.1 101 18 106/68 (81) 98.1 Physical Exam On exam her leg deformity is corrected distal neurovascular status intact dressings clean dry intact good early range of motion left knee Labs Laboratory Tests Test 03/27/20 11:23 03/28/20 06:15 Prothrombin Time 13.1 SEC (11.7-14.0) 14.7 SEC (11.7-14.0) Prothromb Time International Ratio 1.0 (0.8-1.1) 1.2 (0.8-1.1) Activated Partial Thromboplast Time 27 SEC (24-38) Laboratory Tests Test 03/28/20 06:15 Prothrombin Time 14.7 SEC (11.7-14.0) Prothromb Time International Ratio 1.2 (0.8-1.1) Imaging Postop x-rays show excellent alignment total knee arthroplasty with correction of her valgus deformity Assessment Assessment POD#1 left total knee arthroplasty Plan Plan of Care Mobilize with physical therapy standard total knee protocol weightbearing as tolerated Coumadin anticoagulation Planned home with home health on discharge Justicifation of Admission Dx: Justifications for Admission: Justification of Admission Dx: N/A CLAIRE MILTON MD Mar 28, 2020 22:07
[2020-03-29] MEDS: ACETAMINOPHEN 500 MG TABLET PO SCH ×4 (03:11→21:20)
[2020-03-29 06:20] VITALS: BP 87/60
[2020-03-29 08:21] LABS: PROTHROMBIN TIME PATIENT 15.8 SEC (11.7-14.0)
[2020-03-29 08:32] LABS: HEMATOCRIT 34.9 % (36.0-47.0); HEMOGLOBIN 11.6 g/dL (12.0-15.5)
[2020-03-29] MEDS: buPROPion SR 150 MG TABLET.SA PO SCH (08:38)
[2020-03-29] MEDS: HYDROXYCHLOROQUINE 200 MG TABLET PO SCH ×2 (08:39→21:21)
[2020-03-29] MEDS: MULTIVITAMIN with MINERAL TABLET. PO SCH (08:39)
[2020-03-29] MEDS: SENNOSIDES/DOCUSATE 8.6/50MG TABLET. PO SCH (09:00)
[2020-03-29] MEDS: LISINOPRIL 10 MG TABLET PO SCH (09:00)
[2020-03-29] MEDS: hydroCHLOROthiazide 12.5 MG CAPSULE PO SCH (09:00)
--- NOTE | 2020-03-29 09:32 | PDOC ---
PROGRESS NOTES Date of Service DATE: 03/29/20 TIME: 09:20 Subjective Subjective Problems overnight: Pain better controlled she still feels somewhat unsteady and has a history of frequent falls, left knee feels much better than it did in terms of stability but she is overall unsteady Objective Vital Signs Vital Signs Date Time Temp Pulse Resp B/P (MAP) Pulse Ox O2 Delivery O2 Flow Rate FiO2 03/29/20 07:34 Room Air 03/29/20 06:20 98.5 90 18 87/60 (69) 94 98.5 03/28/20 23:15 95.0 Physical Exam She has good range of motion and stability of the left knee distal neurovascular status is intact dressing is intact with minimal spotty drainage Labs Laboratory Tests Test 03/27/20 11:23 03/28/20 06:15 03/29/20 07:40 Prothrombin Time 13.1 SEC (11.7-14.0) 14.7 SEC (11.7-14.0) 15.8 SEC (11.7-14.0) Prothromb Time International Ratio 1.0 (0.8-1.1) 1.2 (0.8-1.1) 1.3 (0.8-1.1) Activated Partial Thromboplast Time 27 SEC (24-38) Hemoglobin 11.6 g/dL (12.0-15.5) Hematocrit 34.9 % (36.0-47.0) Mean Corpuscular Hemoglobin Concent 33 g/dL (31-37) Laboratory Tests Test 03/29/20 07:40 Hemoglobin 11.6 g/dL (12.0-15.5) Hematocrit 34.9 % (36.0-47.0) Mean Corpuscular Hemoglobin Concent 33 g/dL (31-37) Prothrombin Time 15.8 SEC (11.7-14.0) Prothromb Time International Ratio 1.3 (0.8-1.1) Assessment Assessment POD#2 left total knee arthroplasty for tibial plateau fracture Plan Plan of Care Continue mobilize with physical therapy needs more work on safe transfers ambulation Warfarin per pharmacy Home health when stable for discharge Justicifation of Admission Dx: Justifications for Admission: Justification of Admission Dx: Yes (Adjusting medications and working on safety for fall risk) CLAIRE MILTON MD Mar 29, 2020 09:32
--- NOTE | 2020-03-29 09:53 | NUR ---
Pharmacy Warfarin Dosing Note S:Pharmacy consulted to assist with anticoagulation therapy started with target INR: 1.6 - 2.5 O:ARACELI BADILLO is a 69 year old F with TKA LABS: Last INR: 1.3 Last HGB: 11.6 Last HCT: 34.9 Last PLT: -- Last dose of 5 mg given on 03/28/20 at 1706 A:INR of 1.3 is below desired range. Target range for this patient is: 1.6 - 2.5 P: Warfarin dose: 5 mg Today at 1600 Bridge Therapy: None Next INR due 03/30/20 Pharmacy anticoagulation service will continue to follow. BARBIE DUMONT RPH, 03/29/20 0956
--- NOTE | 2020-03-29 11:46 | NUR ---
Held Senna Plus this am. Pt has had at least 4 bowel movements, yesterday.
[2020-03-29] MEDS ORDERED: WARFARIN 5 MG TABLET. PO ONE (16:00)
[2020-03-29 18:00] VITALS: BP 105/71
[2020-03-29] MEDS: IV NORMAL SALINE 1000ML BAG 1,000 ML IV SCH (19:27)
[2020-03-29] MEDS: PRAMIPEXOLE 0.25 MG TABLET. PO SCH (21:20)
[2020-03-29] MEDS: ALPRAZolam 0.25 MG TABLET PO PRN (22:04)
[2020-03-29] MEDS: oxyCODONE IR 5 MG TABLET PO PRN (22:05)
[2020-03-30] MEDS: ACETAMINOPHEN 500 MG TABLET PO SCH ×3 (03:01→14:25)
[2020-03-30 06:28] VITALS: BP 123/77
[2020-03-30 07:21] LABS: HEMATOCRIT 36.2 % (36.0-47.0); HEMOGLOBIN 11.9 g/dL (12.0-15.5)
[2020-03-30 07:34] LABS: PROTHROMBIN TIME PATIENT 19.5 SEC (11.7-14.0)
[2020-03-30] MEDS: MULTIVITAMIN with MINERAL TABLET. PO SCH (08:33)
[2020-03-30] MEDS: buPROPion SR 150 MG TABLET.SA PO SCH (08:35)
[2020-03-30] MEDS: HYDROXYCHLOROQUINE 200 MG TABLET PO SCH (08:35)
[2020-03-30 09:00] VITALS: BP 100/60
[2020-03-30] MEDS: SENNOSIDES/DOCUSATE 8.6/50MG TABLET. PO SCH (09:00)
[2020-03-30] MEDS: hydroCHLOROthiazide 12.5 MG CAPSULE PO SCH (09:00)
[2020-03-30] MEDS: LISINOPRIL 10 MG TABLET PO SCH (09:00)
--- NOTE | 2020-03-30 10:08 | NUR ---
Pharmacy Warfarin Dosing Note S:Pharmacy consulted to assist with anticoagulation therapy started with target INR: 1.6 - 2.5 O:ARACELI BADILLO is a 69 year old F with TKA LABS: Last INR: 1.7 Last HGB: 11.9 Last HCT: 36.2 Last PLT: -- Last dose of 5 mg given on 03/29/20 at 1557 Previous Regimen: Vitamin K given: Drug Interaction Changes: Ongoing Drug Interactions: A:INR of 1.7 is within desired range. Target range for this patient is: 1.6 - 2.5 P: Warfarin dose: 5 mg Prior to Discharge and 5mg as home dose Bridge Therapy: None Next INR due 04/02/19 Pharmacy anticoagulation service will continue to follow. KENTRELL ANGELES RPH, 03/30/20 2161
[2020-03-30] MEDS ORDERED: Warfarin Per Pharmacy MC (13:54)
--- NOTE | 2020-03-30 13:56 | DISCH ---
DISCHARGE INSTRUCTIONS Condition on Discharge Condition on Discharge: Stable Activity After Discharge Activity Instructions for Disc: Walk in house Bathing Instructions: Shower-keep dressing dry, No Tub Bath until see Lifting Instructions after Dis: No heavy lifting, No pulling or pushing, Do not lift >10 pounds Exercise Instruction after Dis: Exercise per therapy, Progress as tolerated Driving Instructions after Dis: Do not drive Weight Bearing Status after Di: As tolerated Diet after Discharge Diet after Discharge: Regular Liquid Texture: Thin Liquid Wound Incision Care Wound/Incision Care: Do not change dressing Contacting the DRBrennon after DC Call your doctor for: Concerns you may have Follow-Up Follow up with: Dr. Sy 2 weeks postoperative Treatment/Equipment after DC Adaptive Equipment Issued: Front wheeled walker Warfarin Follow-Up Warfarin Follow UP: Dosage and testing per [facility] CLAIRE SY MD Mar 30, 2020 13:56
[2020-03-30] MEDS ORDERED: WARFARIN 5 MG TABLET. PO ONE (14:00)
[2020-03-30] MEDS: ALPRAZolam 0.25 MG TABLET PO PRN (14:29)
--- NOTE | 2020-03-30 15:52 | DS ---
DATE OF DISCHARGE: 03/30/2020 PRINCIPAL DIAGNOSES: 1. 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 2. Instability of left knee joint. 3. Degenerative joint disease, left knee, preexisting. OPERATIVE PROCEDURE: Include a left total knee arthroplasty. DISPOSITION: Home with outpatient physical therapy. DISCHARGE INSTRUCTIONS: Activity, weightbearing as tolerated. Standard total knee precautions. Maintain MANFRED dressing. Call if saturated, otherwise if remains intact, cut tail of dressing and tape over to maintain seal. When the suction machine quits at one week, discard the suction machine at that point. Follow up with Dr. Sy in 2 weeks. DISPOSITION MEDICATIONS: Include oxycodone 5 mg p.o. every 4 hours p.r.n. pain, warfarin as directed by anticoagulation clinic, resume preoperative medications otherwise. Follow up with Dr. Sy in 2 weeks postoperatively. BRIEF DESCRIPTION OF HOSPITAL COURSE: The patient underwent uncomplicated left total knee arthroplasty for her combination of a lateral tibial plateau fracture with instability as well as preexisting degenerative joint disease of the left knee. Postoperatively, she required adjustment of her pain medications and subsequently was still having difficulties ambulating and transferring safely due to her significant preexisting fall risk and weakness. Otherwise, she remained medically stable and was discharged home in stable condition on postoperative day ____ on 03/30/2020. CLAIRE SY MD DR: CHAZ/stanislaw JOB#: [id number] / [id number]
--- NOTE | 2020-03-30 16:35 | NUR ---
Discharge instructions given with prescription. Answered questions and concerns. Verbalized understanding. Pt discharged home accompanied by spouse. Escorted out by w/c.
--- NOTE | 2020-04-03 09:12 | PATHOLOGY ---
[facility] Accession Number: [id number] . 01 Material submitted: . knee - LEFT KNEE BONE AND TISSUE. Modifiers: left . 02 Diagnosis: Segments of bone and soft tissue, left total knee arthroplasty: - Degenerative arthritis. (JPM:diamond; 04/02/2020) MBR 04/02/2020 1244 Local . 02 Electronically signed: . Rg Grove MD, Pathologist NPI- [id number] . 01 Gross description: . Received in formalin labeled "Nikki Durant, left knee bone and tissue" are multiple irregular, gamino-white portions of bone and soft tissue measuring in aggregate 8.9 x 7.3 x 2.6 cm. Within the portions of bone is an identifiable partial tibial plateau and distal epicondyle. The articular surface is covered with cartilage with slight eburnation and osteophyte formation. [employer] sections of the specimen are submitted after decalcification in cassettes A1-A3.([facility]; 03/30/2020) GZA/GZA 04/02/2020 1243 Local . 02 Pathologist provided ICD-10: M17.12 . 02 CPT . 635729, [id number] Specimen Comment: A courtesy copy of this report has been sent to [phone] Specimen Comment: Report sent to Specimen Comment: A duplicate report has been generated due to demographic updates. Performed at: 01 [facility] [address] [id number] MD Erick Clarke MD Phone: [phone] Performed at: 02 [facility] [address] [place], [place] [id number] MD Rg Grove MD Phone: [phone]
== END 2020-03-30 16:35 | disposition home or self-care (01) | DRG 470 ==
LOC: SURG 10:40 → 4 SOUTHEST 17:40 → OBSVTOIN 03-29 08:10
PROVIDERS: ADMIT Orthopaedic Surgery; ATTEND Orthopaedic Surgery
PROC: 0SRD0J9 Replacement of Left Knee Joint with Synthetic Substitute, Cemented, Open Approach (ICD-10-PCS; principal; 2020-03-27 12:15)
DX: S82.142A Displaced bicondylar fracture of left tibia, initial encounter for closed fracture (principal); M21.062 Valgus deformity, not elsewhere classified, left knee; M25.362 Other instability, left knee; M17.12 Unilateral primary osteoarthritis, left knee; Y93.89 Activity, other specified; Y92.89 Other specified places as the place of occurrence of the external cause; Y99.8 Other external cause status; Z91.81 History of falling; I10 Essential (primary) hypertension; F41.9 Anxiety disorder, unspecified; M32.9 Systemic lupus erythematosus, unspecified
CPT/HCPCS: 36415; 73560; 85014; 85018; 85610; 85730; 86850; 86900; 86901; 88305; 88311; 90471; 90686; C1713; G0378; G0379; J0171; J0690; J0780; J1100; J1170; J1885; J2270; J2405; J2704; J2795; J3010; J3370; J3490; J7030; 97116-GP; 97150-GP; 97530-GP; 97535-GO; C1769

== ENCOUNTER → 2020-04-17 | Outpatient (CLI) | payer MEDICARE ==
[2020-03-30 09:00] VITALS: BP 100/60
[~2020-04-17] MED LIST changes: +0.9 % SODIUM CHLORIDE 10 ML DISP.SYRIN. ID ONE; -ACETAMINOPHEN 500 MG TABLET PO ONE; +CONTRAST GIVEN. MC PRN; -DEXAMETHASONE SOD PHOS 4 MG/ML VIAL ONE; -GABAPENTIN 300 MG CAPSULE. PO ONE; +GADOTERATE 5 MMOL/10ML VIAL. INT ART ONE; +IOHEXOL 300 MG/ML 50 ML VIAL. INT ART ONE; -IV RINGERS,LACTATED 1000ML 1,000 ML IV SCH; +LIDOCAINE 1% Multi-Dose 20 ML VIAL. ID ONE; -LIDOCAINE 1% PF 2 ML VIAL. ID PRN; -LIDOCAINE 2% PF 5 ML VIAL. ONE; -MELOXICAM 7.5 MG TABLET PO ONE; -MORPHINE SULFATE 5 MG, KETOROLAC 30MG VIAL 30 MG, ROPIVacaine 0.5% PF 60 ML, EPINEPHrin... INT ART ONE; -ONDANSETRON PF 4 MG/2 ML VIAL. IV PRN; -ONDANSETRON PF 4 MG/2 ML VIAL. ONE; -PROPOFOL 10 MG/ML (20ML) VIAL. IV ONE; -TRANEXAMIC ACID 1,000 MG in IV NORMAL SALINE 50ML 50 ML INJ ONE; +Warfarin Per Pharmacy MC; -ceFAZolin SODIUM IV Push 1 GM VIAL. IVP PRN; -fentaNYL PF VIAL 100 MCG/2 ML VIAL IV PRN; -fentaNYL PF VIAL 100 MCG/2 ML VIAL ONE
--- NOTE | 2020-04-17 16:20 | KCIC ---
EXAM: Left shoulder joint injection WITH Fluoroscopic guidance DATE: 04/17/2020 1:05 PM CLINICAL HISTORY: Reason: Left shoulder pain, previous surgery, evaluate rotator cuff. COMPARISON: None pertinent TECHNIQUE: The patient was informed of the indications and alternatives for this procedure as well as risks and benefits. No immediate contraindication identified. The patient provided informed, written consent. Laterality was confirmed by the entire team following a time out. Following initial left shoulder joint localization, a suitable area was sterilely prepped and draped. Local anesthesia was administered with 1% xylocaine. With intermittent fluoroscopic observation, a 2 2-gauge spinal needle was advanced into the left shoulder joint sheath/capsule with confirmation of i ntra-synovial position with infusion of less than 1 cc iodinated contrast. Subsequent infusion 12 mL solution containing 10 cc saline, 5 cc lidocaine 1%, 5 cc Isovue and 0.1 cc gadolinium. Hemostasis wi th local pressure. Local clinical exam negative for immediate complication. Patient informed re local potential signs or symptoms that may indicate need to return to ER/Ordering physician for further evaluation. Patient informed re precautionary measures after intra-synovial in jection of anesthetic. Patient expressed understanding. Performing Physicians: Dr. Hasmukh Henry Blood Loss: 0 cc Total Fluoroscopy time: 8 seconds Total spot images taken: 0 Single last image hold images saved. IMPRESSION: Successful intra-synovial injection left shoulder joint with gadolinium contrast pre-MRI per clinical request. Electronically signed by: Ramiro Henry MD (04/17/2020 4:17 PM) [id number]
--- NOTE | 2020-04-18 08:18 | KCIC ---
EXAM: MRI Left shoulder DATE: 04/17/2020 2:10 PM COMPARISON: 04/09/2020 INDICATION: Left shoulder pain TECHNIQUE: Multiplanar, multisequence MRI of the Left shoulder was performed without contrast. FINDINGS: Examination is limited by motion artifact as well as susceptibility artifact from humeral head hardwa re. Iatrogenic distention of the left glenohumeral joint with gadolinium contrast. Full-thickness rotator cuff tear described below results in subacromial-subdeltoid and subcoracoid bursal distention. Full-thickness, full width tear of the supraspinatus and anterior fibers of infraspinatus measuring a pproximately 4 cm in AP dimension. There is retraction to the level of the AC joint. There is moderat e fatty atrophy and mild edema within the supraspinatus and infraspinatus muscle bellies. Mild deformity of the posterior, posterior inferior labrum likely partial tear/degeneration. Evaluati on of the articular cartilage is limited given motion artifact. No definite fracture or osteonecrosis is identified. IMPRESSION: 1. Full-thickness, full width tear of the supraspinatus tendon and full-thickness, partial width tea r of the infraspinatus tendon measuring approximately 4 cm in AP dimension with retraction to the lev el of the pineal. 2. Posterior inferior glenoid labral deformity, partial tear/degeneration. Electronically signed by: Ramiro Henry MD (04/18/2020 8:16 AM) [id number] Laterality
== END | disposition home or self-care (01) ==
LOC: KCIC 12:40
PROVIDERS: ATTEND Orthopaedic Surgery
DX: M25.512 Pain in left shoulder (principal); I10 Essential (primary) hypertension; K21.9 Gastro-esophageal reflux disease without esophagitis; M19.90 Unspecified osteoarthritis, unspecified site; F41.9 Anxiety disorder, unspecified; F32.9 Major depressive disorder, single episode, unspecified; Z90.710 Acquired absence of both cervix and uterus; Z98.890 Other specified postprocedural states; Z79.899 Other long term (current) drug therapy; Z88.8 Allergy status to other drugs, medicaments and biological substances
CPT/HCPCS: 23350; 73222; 77002; A9575; J3490; Q9967; 73040

== ENCOUNTER → 2020-10-05 | Outpatient (CLI) | payer MEDICARE ==
[~2020-10-05] MED LIST changes: -0.9 % SODIUM CHLORIDE 10 ML DISP.SYRIN. ID ONE; -CONTRAST GIVEN. MC PRN; -GADOTERATE 5 MMOL/10ML VIAL. INT ART ONE; -IOHEXOL 300 MG/ML 50 ML VIAL. INT ART ONE; -LIDOCAINE 1% Multi-Dose 20 ML VIAL. ID ONE
--- NOTE | 2020-10-11 11:58 | KCIC ---
EXAM: Bilateral digital screening mammogram with tomosynthesis. HISTORY: 69-year-old female presents for screening mammography. TECHNIQUE: Full-field digital craniocaudal and mediolateral oblique 2D and 3D tomosynthesis images of both breasts are obtained for evaluation. Computer aided detection was applied. COMPARISON: No prior study to be attained for comparison. This exam serves as a new baseline mammogra m. BREAST PARENCHYMAL DENSITY: Level A - Mostly fat FINDINGS: There is no suspicious mass, microcalcification or region of architectural distortion. IMPRESSION: BI-RADS Category 2: Benign finding(s). RECOMMENDATION: Annual mammography is recommended. If your mammogram demonstrates that you have dense breast tissue, which could hide abnormalities, and if you have other risk factors for breast cancer that have been identified, you might benefit from s upplemental screening tests that may be suggested by your ordering physician. Dense breast tissue, i n and of itself, is a relatively common condition. This information is not provided to cause undue c oncern, but rather to raise your awareness and to promote discussion with your physician regarding th e presence of other risk factors, in addition to dense breast tissue. A report of your mammography re sults will be sent to you and your physician. You should contact your physician if you have any ques tions or concerns regarding this report. Mammography is a sensitive method for finding small breast cancers, but it does not detect them all a nd is not a substitute for careful clinical examination. A negative mammogram does not negate a clin ically suspicious finding and should not result in delay in biopsying a clinically suspicious abnorma lity. PQRS compliance statement - Patient information was entered into a reminder system with a target due date for the next mammogram. "Our facility is accredited by the [employer] Mammography Program." Electronically signed by: Flora Mayes MD (10/11/2020 11:56 AM) [facility]
== END ==
LOC: KCIC MAMMO 12:20
PROVIDERS: ATTEND Family Medicine
DX: Z12.31 Encounter for screening mammogram for malignant neoplasm of breast (principal)
CPT/HCPCS: 77063; 77067

== ENCOUNTER → 2020-10-30 | Outpatient (CLI) | payer MEDICARE ==
[~2020-10-30] MED LIST changes: +ACET325T9 PO; +BIOT1CAP3 PO; +CHOL-5 PO; +DOCU100C28 PO; +ESTR50GE TP; +FISH12002 PO; +HYDR-2769 PO; +MAGN400C PO; +VITA1TAB33; +ZINC50TA39 PO
[2020-10-30 14:58] LABS: BASO % 1 % (0-3); EOS # 0.4 x10^3/uL (0.0-0.7); EOS % 9 % (0-3); HEMATOCRIT 39.1 % (36.0-47.0); HEMOGLOBIN 13.3 g/dL (12.0-15.5); LYMPH # 1.3 x10^3/uL (1.0-4.8); LYMPH % 26 % (24-48); MEAN CORPUSCULAR HEMOGLOBIN 31 pg (25-35); MEAN CORPUSCULAR HGB CONC 34 g/dL (31-37); MEAN CORPUSCULAR VOLUME 92 fL (79-100); MONO # 0.6 x10^3/uL (0.0-1.1); MONO % 13 % (0-9); NEUT # 2.6 x10^3/uL (1.8-7.7); NEUT % 52 % (31-73); PLATELET COUNT 228 x10^3/uL (140-400); RED BLOOD COUNT 4.23 x10^6/uL (3.50-5.40); RED CELL DISTRIBUTION WIDTH 13.7 % (11.5-14.5); WHITE BLOOD COUNT 4.9 x10^3/uL (4.0-11.0)
[2020-10-30 15:07] LABS: PROTHROMBIN TIME PATIENT 12.9 SEC (11.7-14.0)
[2020-10-30 15:27] LABS: ALBUMIN 3.5 g/dL (3.4-5.0); CALCIUM 9.4 mg/dL (8.5-10.1); GFR 54.8; POTASSIUM 4.4 mmol/L (3.5-5.1)
[2020-10-31 03:25] LABS: HEMOGLOBIN A1C 5.3 % (4.8-5.6)
== END ==
LOC: SURGPAT 13:19
PROVIDERS: ATTEND Orthopaedic Surgery
DX: Z01.818 Encounter for other preprocedural examination (principal); M12.812 Other specific arthropathies, not elsewhere classified, left shoulder
CPT/HCPCS: 36415; 80048; 82040; 82306; 83036; 85025; 85610; 85651; 85730; 87641